=== PATIENT | male | born 1990 | race Caucasian/White ===

== ENCOUNTER 2016-09-13 21:47 | Emergency (ER) | payer SELFPAY ==
[2016-09-13 21:50] VITALS: BP 164/84; PULSE 91; RESP 14; TEMP 97.5; O2SAT 99
--- NOTE | 2016-09-13 22:32 | RADRPT ---
EXAM DATE/TIME: 09/13/2016 22:08 [place] COMPARISON: No previous studies available for comparison. INDICATIONS : Chest pain and higher than normal blood pressure. MEDICAL HISTORY : None. SURGICAL HISTORY : None. ENCOUNTER: Initial ACUITY: 3 days PAIN SCORE: 3/10 LOCATION: Bilateral chest FINDINGS: A single view of the chest demonstrates the lungs to be symmetrically aerated without evidence of mas s, infiltrate or effusion. The cardiomediastinal contours are unremarkable. Osseous structures are intact. CONCLUSION: No acute disease. Yariel Mccain MD on September 13, 2016 at 22:30 Board Certified Radiologist. This report was verified electronically.
[2016-09-13 22:35] LABS: AUTOMATED NEUTROPHIL # 3.4 TH/MM3 (1.8-7.7); BASOPHIL % 0.6 % (0.0-2.0); EOSINOPHIL # 0.4 TH/MM3 (0-0.4); HEMATOCRIT 40.2 % (39.0-51.0); HEMO FLAGS DIFF FINAL; LYMPH % 44.4 % (9.0-44.0); LYMPHOCYTE # 3.4 TH/MM3 (1.0-4.8); MEAN CELL VOLUME 85.1 FL (80.0-100.0); MEAN CORPUSCULAR HEMOGLOBIN 30.3 PG (27.0-34.0); MEAN CORPUSCULAR HGB CONC 35.6 % (32.0-36.0); MONO % 5.5 % (0.0-8.0); NEUT % 44.5 % (16.0-70.0); PLATELET COUNT 209 TH/MM3 (150-450); RED BLOOD COUNT 4.73 MIL/MM3 (4.50-5.90); RED CELL DISTRIBUTION WIDTH 12.5 % (11.6-17.2); WHITE BLOOD COUNT 7.5 TH/MM3 (4.0-11.0)
[2016-09-13 22:57] LABS: BICARBONATE 25.2 MEQ/L (21.0-32.0); BLOOD UREA NITROGEN 12 MG/DL (7-18); CHLORIDE 105 MEQ/L (98-107); GLOMERULAR FILTRATION RATE 96 ML/MIN (>89); POTASSIUM 3.3 MEQ/L (3.5-5.1); SODIUM (NA) 139 MEQ/L (136-145)
[2016-09-13 22:58] LABS: ANION GAP 9 MEQ/L (5-15)
[2016-09-13 23:02] LABS: CREATINE KINASE 229 U/L (39-308)
[2016-09-13 23:15] LABS: CKMB 0.8 NG/ML (0.5-3.6)
--- NOTE | 2016-09-16 22:36 | EKG ---
Date Performed: 09/13/2016 Time Performed: 22:18:56 PTAGE: 26 years EKG: Sinus rhythm NORMAL ECG NO PREVIOUS TRACING DOCTOR: Butch Fernández Interpretating Date/Time 09/16/2016 22:34:33
== END 2016-09-14 00:08 | disposition left against medical advice (07) ==
LOC: EDBD → NED 21:47
DX: R07.9 Chest pain, unspecified (principal)
CPT/HCPCS: 71010; 80048; 82550; 82552; 84484; 85025; 93005; 99281